=== PATIENT | male | born 1950 | race Caucasian/White ===

== ENCOUNTER → 2017-01-05 | Day surgery (SDC) | payer OTHER ==
[~2017-01-05] MED LIST: ACETAMINOPHEN 325 MG TAB ONE; DEXAMETHASONE SOD PHOS 4 MG/ML VIAL ONE; EPINEPHrine HCL (1:1000) 1 MG/ML VIAL ONE; LACTATED RINGER'S 1000 ML INJ 1,000 ML ONE; MIDAZOLAM HCL 2 MG/2 ML VIAL ONE; MOXIFLOXACIN 0.5% OPHT SOLN 3 ML BTL ONE; ONDANSETRON HCL 4 MG/2 ML VIAL IV PUSH ONE; PHENYLEPHRINE HCL 10% OPTH SOLN 5 ML BTL ONE; PROPOFOL 200 MG/20 ML AMP IV ONE; SODIUM CHLORIDE 0.9% INJ 10 ML ONE; TOBRAMYCIN/DEXAMETHASONE OPTH OINT 3.5 GM TUBE ONE; ceFAZolin INJ 1,000 MG VIAL ONE; prednisoLONE ACETATE 1% OPHT SUSP 5 ML BTL ONE
--- NOTE | 2017-01-06 11:33 | MP ---
cc: CRISTIANO RUIZ MD DATE OF SURGERY: 01/05/2017 PREOPERATIVE DIAGNOSIS Full-thickness macular hole, epiretinal membrane left eye. POSTOPERATIVE DIAGNOSIS Full-thickness macular hole, epiretinal membrane left eye. PROCEDURE Pars plana vitrectomy, removal of internal limiting membrane / epiretinal membrane, macular hole closure, air-fluid exchange, insertion of 18% SF6 gas left eye. COMPLICATIONS None. BLOOD LOSS Less than 1 cc. ANESTHESIA general Konstantin. INDICATIONS FOR PROCEDURE This delightful patient presented with significantly decreased vision and full-thickness macular hole with central scotoma of his left eye. The patient elected for surgical correction in hopes to salvage remaining visual acuity. PROCEDURE NOTE After informed consent was obtained, the patient was brought to the operating room and general anesthesia was established. The left eye was prepped and draped in sterile fashion with Betadine in the conjunctival fornix. A three port pars plana vitrectomy was established with a self-retaining infusion cannula. The core vitreous was evacuated. The ILM/ERM complex was highlighted with ICG and removed with ILM forceps. Air-fluid exchange was carried out and macular hole noted to close. Peripheral scleral depressing examination revealed no untreated retinal holes, tears or detachments. Trocars were removed and sclerotomies closed. Subconjunctival injection of Ancef and dexamethasone were given. The eye was patched with Tobramycin ointment. The patient was brought to the recovery room in stable condition. Continue followup with [facility] for his postoperative care. MD RADHA Hernandez/TLJose /10:58 AM /11:08 AM
== END | disposition home or self-care (01) ==
LOC: ESDC 07:31
PROVIDERS: ATTEND Ophthalmology
DX: H35.342 Macular cyst, hole, or pseudohole, left eye (principal)
CPT/HCPCS: 00145; 67042; J0171; J0690; J1100; J2250; J2405; J3010; J7120